=== PATIENT | male | born 1990 | race Hispanic/Latino ===

== ENCOUNTER → 2022-12-21 | Outpatient (CLI) | payer OTHER ==
[~2022-12-21] VITALS: Ht 172.7 cm; Wt 92.4 kg
[~2022-12-21] MED LIST: 0.9%NACL 1000ML 1,000 ML IV SCH; CEFAZOLIN SODIUM 1 GM VIAL IVPB PRN; CETI10TA57 PO; IBUP-2070 PO
[2022-12-21 17:21] VITALS: BP 140/86
[2022-12-21 17:21] LABS: BASOPHILS % (AUTO) 0.6 % (0.0-5.0); EOSINOPHILS % (AUTO) 2.2 % (0.0-8.0); MEAN CORPUSCULAR HEMOGLOBIN 30.8 pg (27.0-33.0); MEAN CORPUSCULAR HGB CONC 33.6 g/dL (32.0-36.0); MEAN CORPUSCULAR VOLUME 91.6 fL (79-99); MONOCYTES % (AUTO) 7.3 % (3.0-13.0); NEUTROPHILS % (AUTO) 61.4 % (40.0-77.0); PLATELET COUNT (AUTO) 298 K/uL (130-400); RED BLOOD CELL COUNT(AUTO) 4.91 MIL/uL (4.50-6.20); RED CELL DISTRIBUTION WIDTH 12.9 % (11.0-15.5); WHITE BLOOD COUNT (AUTO) 6.4 K/uL (4.8-10.8)
[2022-12-21 18:08] LABS: CREATININE 1.1 mg/dL (0.5-1.5); POTASSIUM 4.1 mmol/L (3.5-5.1)
== END | disposition home or self-care (01) ==
LOC: EDSTATUS 12-20 15:00 → DAH 10:00
PROVIDERS: ATTEND Surgery
DX: Z01.818 Encounter for other preprocedural examination (principal); Z20.822 Contact with and (suspected) exposure to COVID-19; L05.91 Pilonidal cyst without abscess
CPT/HCPCS: 87426; 36415; 80048; 85025; A6260

== ENCOUNTER 2023-01-07 09:32 | Day surgery (SDC) | payer OTHER ==
[2023-01-04 14:01] LABS: BASOPHILS % (AUTO) 0.7 % (0.0-5.0); HEMATOCRIT 44.3 % (42-54); LYMPHOCYTES % (AUTO) 33.3 % (21.0-51.0); MEAN CORPUSCULAR HEMOGLOBIN 30.2 pg (27.0-33.0); MEAN CORPUSCULAR HGB CONC 33.6 g/dL (32.0-36.0); MEAN CORPUSCULAR VOLUME 89.9 fL (79-99); MONOCYTES % (AUTO) 5.2 % (3.0-13.0); NEUTROPHILS % (AUTO) 58.5 % (40.0-77.0); PLATELET COUNT (AUTO) 315 K/uL (130-400); RED BLOOD CELL COUNT(AUTO) 4.93 MIL/uL (4.50-6.20); RED CELL DISTRIBUTION WIDTH 12.9 % (11.0-15.5)
[2023-01-04 14:47] VITALS: BP 124/81
[~2023-01-07] VITALS: Ht 172.7 cm; Wt 91.9 kg
[2023-01-07] VITALS (16 sets, daily range): BP systolic 105–149; BP diastolic 60–88
[~2023-01-07 09:32] MED LIST changes: -0.9%NACL 1000ML 1,000 ML IV SCH; -CEFAZOLIN SODIUM 1 GM VIAL IVPB PRN
[2023-01-07] MEDS ORDERED: CEFAZOLIN SODIUM 2 GM VIAL ONE (09:45)
[2023-01-07] MEDS ORDERED: LACTATED RINGERS 1000ML 1,000 ML IV ONE (09:45)
[2023-01-07] MEDS ORDERED: DEXAMETHASONE SOD PHOSPHATE 4 MG/ML 1ML VIAL ONE (11:07)
[2023-01-07] MEDS ORDERED: PROPOFOL 10 MG/ML 20ML VIAL IV ONE (11:08)
[2023-01-07] MEDS ORDERED: GLYCOPYRROLATE 1 MG/5 ML SYRINGE ONE (11:09)
[2023-01-07] MEDS ORDERED: ROCURONIUM BROMIDE 10MG/1ML 5ML VL ONE (11:11)
[2023-01-07] MEDS ORDERED: MIDAZOLAM HCL 1 MG/ML 2ML VIAL ONE (11:16)
[2023-01-07] MEDS ORDERED: FENTANYL CITRATE PF 50 MCG/1 ML 5ML AMP IV ONE (11:16)
[2023-01-07] MEDS ORDERED: MEPERIDINE-PF 25 MG/ML SYG ONE ×3 (11:16→12:42)
[2023-01-07] MEDS ORDERED: CEFAZOLIN SODIUM 2 GM VIAL IVPB ONE (11:50)
[2023-01-07] MEDS ORDERED: BUPIVACAINE/PF 0.25% 30ML VIAL IJ ONE ×2 (11:55→12:10)
[2023-01-07] MEDS ORDERED: KETOROLAC 30MG VIAL (30MG/ML) ONE (12:57)
== END 2023-01-07 14:05 | disposition home or self-care (01) ==
LOC: DAH 09:32
PROVIDERS: ATTEND Surgery
DX: L05.91 Pilonidal cyst without abscess (principal); F41.9 Anxiety disorder, unspecified; F10.10 Alcohol abuse, uncomplicated; Z79.899 Other long term (current) drug therapy; Z72.89 Other problems related to lifestyle; Z79.1 Long term (current) use of non-steroidal anti-inflammatories (NSAID); F14.10 Cocaine abuse, uncomplicated
CPT/HCPCS: 80048; 85025; 87426; 36415; 11771; J1100; A4663; A4606; J7120; J3010; J3490 ×4; J2250; J2704; J1885; J2175 ×3; J0690 ×2; A4215; A4223; A4222; A4221; A4600